=== PATIENT | female | born 1975 ===

== ENCOUNTER 2018-03-15 18:04 | Emergency (ER) | payer OTHER ==
[~2018-03-15] VITALS: Ht 157.5 cm; Wt 56.7 kg
[2018-03-15] MEDS ORDERED: IBUPROFEN 600 MG TABLET ONE (19:56)
[2018-03-15] MEDS ORDERED: IBUPROFEN 600 MG TABLET PO ONE (20:00)
--- NOTE | 2018-03-15 20:54 | NUR ---
Patient discharged to home in stable conditon. Written and verbal after care instructions given. Patient verbalizes understanding of instructions.
[2018-03-15 20:55] VITALS: BP 118/72
== END 2018-03-15 20:56 | disposition home or self-care (01) ==
LOC: ER 18:04
DX: S92.302A Fracture of unspecified metatarsal bone(s), left foot, initial encounter for closed fracture (principal); X58.XXXA Exposure to other specified factors, initial encounter; Y92.89 Other specified places as the place of occurrence of the external cause; Y93.41 Activity, dancing; Y99.8 Other external cause status
CPT/HCPCS: 73630; A4663